=== PATIENT | female | born 1960 ===

== ENCOUNTER 2018-06-16 08:41 | Observation (INO) | payer OTHER, SELFPAY ==
[2018-06-16 09:18] LABS: BASO # 0.1 K/uL (0.0-0.2); EOS # 0.2 K/uL (0.0-0.7); EOS % 2.3 % (0.0-4.0); HEMOGLOBIN 14.1 g/dL (11.0-16.0); LYMPH # 2.3 K/uL (1.0-4.3); LYMPH % 22.2 % (20.0-40.0); MEAN CELL VOLUME 83.1 fL (81.0-99.0); MEAN CORPUSCULAR HEMOGLOBIN 27.8 pg (27.0-31.0); MEAN CORPUSCULAR HGB CONC 33.5 g/dL (33.0-37.0); MEAN PLATELET VOLUME 8.4 fL (7.2-11.7); MONO # 0.6 K/uL (0.0-0.8); MONO % 5.8 % (0.0-10.0); NEUT % 68.7 % (50.0-75.0); RBC 5.07 Mil/uL (3.80-5.20); RED CELL DISTRIBUTION WIDTH 12.8 % (11.5-14.5); WHITE BLOOD COUNT 10.2 K/uL (4.8-10.8)
[2018-06-16 09:34] LABS: ALB/GLOB RATIO 1.3 (1.0-2.1); ALBUMIN 4.4 g/dL (3.5-5.0); ALT/SGPT 26 U/L (9-52); AST/SGOT 24 U/L (14-36); BLOOD UREA NITROGEN 15 mg/dL (7-17); CALCIUM 9.7 mg/dl (8.6-10.4); GFR AFRICAN-AMERICAN > 60; GFR NON-AFRICAN AMERICAN > 60
[2018-06-16 09:44] LABS: B-TYPE NATRIURETIC PEPTIDE 63.1 pg/mL (0-900)
[2018-06-16] MEDS ORDERED: Aspirin 325 mg EC Tablets PO STA (10:16)
--- NOTE | 2018-06-16 10:17 | C.PDOC ---
History Of Present Illness 58 y/o female presents to the ER complaining of midsternal chest pain radiating to the left arm for the past 2 weeks. Patient states that she has associated SOB. Patient is also complaining of general fatigue. Denies having fever, chills , and other complaints. Time Seen by Provider: 06/16/18 09:00 Chief Complaint (Nursing): Chest Pain History Per: Patient History/Exam Limitations: no limitations Onset/Duration Of Symptoms: Days Current Symptoms Are (Timing): Still Present Severity: Moderate Past Medical History Reviewed: Historical Data, Nursing Documentation, Vital Signs Vital Signs: Last Vital Signs Temp 98.8 F 06/16/18 08:47 Pulse 75 06/16/18 08:47 Resp 18 06/16/18 08:47 BP 112/74 06/16/18 08:47 Pulse Ox 96 06/16/18 10:40 - Medical History PMH: Anxiety, Gastritis, HTN, Hypercholesterolemia Denies: Chronic Kidney Disease Surgical History: Cholecystectomy, Endoscopy - [facility] Procedures COLONOSCOPY (04/04/15) ESOPHAGOGASTRODUODENOSCOPY [EGD] W/CLOSED BIOPSY (04/04/15) Family History: States: No Known Family Hx - Social History Hx Alcohol Use: No Hx Substance Use: No - Immunization History Hx Tetanus Toxoid Vaccination: No Hx Influenza Vaccination: No Hx Pneumococcal Vaccination: No Review Of Systems Except As Marked, All Systems Reviewed And Found Negative. Constitutional: Positive for: Other (fatigue). Negative for: Fever, Chills Cardiovascular: Positive for: Chest Pain Respiratory: Positive for: Shortness of Breath. Negative for: Cough Physical Exam - Physical Exam Appears: Non-toxic, No Acute Distress Skin: Normal Color, Warm, Dry Head: Atraumatic, Normacephalic Eye(s): bilateral: Normal Inspection Nose: Normal Oral Mucosa: Moist Throat: Normal, No Erythema, No Exudate Neck: Supple Chest: Symmetrical Cardiovascular: Rhythm Regular Respiratory: Normal Breath Sounds, No Rales, No Rhonchi, No Wheezing Gastrointestinal/Abdominal: Normal Exam, Soft, No Tenderness, No Guarding, No Rebound Neurological/Psych: Oriented x3, Normal Speech ED Course And Treatment - Laboratory Results Result Diagrams: 06/16/18 09:12 06/16/18 09:12 ECG: Interpreted By Me, Viewed By Me ECG Rhythm: Sinus Rhythm Interpretation Of ECG: NSR with normal intervals, normal axises, and no ST/ T wave abnormalities Rate From EC O2 Sat by Pulse Oximetry: 96 (RA) Pulse Ox Interpretation: Normal Medical Decision Making Medical Decision Making: Assessment: Chest Pain Plan: --Labs --CXR --ECG --Aspirin PO Disposition Discussed With DrMichelle: Kareen Young Counseled Patient/Family Regarding: Studies Performed, Diagnosis - Disposition Disposition: HOSPITALIZED Disposition Time: 10:17 Condition: FAIR - Clinical Impression Clinical Impression: Chest pain - Scribe Statement The provider has reviewed the documentation as recorded by the Willieibe Elvie Palencia Provider Attestation: All medical record entries made by the Scribe were at my direction and personally dictated by me. I have reviewed the chart and agree that the record accurately reflects my personal performance of the history, physical exam, medical decision making, and the department course for this patient. I have also personally directed, reviewed, and agree with the discharge instructions and disposition.
--- NOTE | 2018-06-16 11:48 | CP.PCM.HP ---
History of Present Illness - History of Present Illness History of Present Illness: PGY-1 Gisela Love D.O. Medicine H&P for Dr. Gill's service: Chrissy Pineda is a 58 yo female with a history of HTN, HLD, and anxiety/depression who presents to the ED with chest pain x 2 weeks. She is also complaining of fatigue and generalized weakness to the point where she feels like she cannot walk. 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 Specifically, she describes b/l leg weakness and heaviness. She notes the chest pain is constant. It is midsternal and epigastric. The epigastric pain is reproducible with palpation. At present, she denies radiation, but ED reports indicate she previously reported radiation to L arm. She denies dysphagia or heartburn (but she is only home meds for GERD/hx of gastritis). She is intermittently tearful throughout the exam stating that she is depressed because she cannot work and worried that something is wrong with her legs. She denies fevers and chills. She denies SOB or cough. She denies SELF. She denies abdominal pain/N/V/C/D. Meds: Norvasc 5 mg PO daily Lovastatin 40 mg PO daily Metoprolol succinate 50 mg PO daily Losartan-HCTZ 12.5 mg PO daily Pepcid 20 mg PO daily Ranitidine 150 mg PO daily Restoril 30 mg PO QHS All: NKA PMH: HTN HLD Anxiety Depression PSH: Cholecystectomy x2 FH: none SH: Homemaker Lives with 2 children Denies alcohol, tobacco, illicit drugs PMD: Sherif Cardio: Jose R Present on Admission - Present on Admission Any Indicators Present on Admission: No History of DVT/PE: No History of Uncontrolled Diabetes: No Urinary Catheter: No Decubitus Ulcer Present: No History Surgical Site Infection Following: None Review of Systems - Constitutional Constitutional: Fatigue, Weakness. absent: Anorexia, Chills, Fever, Headache - EENT Eyes: absent: Blurred Vision, Change in Vision Ears: absent: Tinnitus, Abnormal Hearing, Dizziness Nose/Mouth/Throat: absent: Nasal Congestion, Dry Mouth, Dysphagia - Cardiovascular Cardiovascular: Chest Pain, Chest Pain at Rest, Chest Pain with Activity. absent: Edema, Lightheadedness, Palpitations, Rapid Heart Rate, Syncope - Respiratory Respiratory: absent: Cough, Dyspnea, Pain on Inspiration, Chest Congestion - Gastrointestinal Gastrointestinal: absent: Abdominal Pain, Change in Stool Character, Constipation, Diarrhea, Nausea, Vomiting - Genitourinary Genitourinary: absent: Difficulty Urinating, Dysuria, Hematuria, Urinary Incontinence, Urinary Frequency, Urinary Hesitance - Reproductive: Female Reproductive:Female: Post Menopausal - Menstruation Menstruation: Post Menopausal - Musculoskeletal Musculoskeletal: Muscle Weakness (b/l LEs). absent: Limited Range of Motion, Numbness, Tingling - Integumentary Integumentary: absent: Lesions, Pruritus, Rash - Neurological Neurological: Weakness (b/l LEs, generalized). absent: Confusion, Numbness, Frequent Falls, Headaches - Psychiatric Psychiatric: Anxiety, Depression - Endocrine Endocrine: Fatigue. absent: Change in Body Appearance, Excessive Sweating, Polydipsia, Polyuria - Hematologic/Lymphatic Hematologic: absent: Easy Bleeding, Easy Bruising, Lymphadenopathy Past Patient History - Past Medical History & Family History Past Medical History?: Yes Past Family History: Reviewed and not pertinent - Past Social History Smoking Status: Never Smoked Chewing Tobacco Use: No Cigar Use: No Alcohol: None Drugs: Denies Home Situation {Lives}: With Family () Domestic Violence: Negative - CARDIAC Hx Hypercholesterolemia: Yes Hx Hypertension: Yes - PULMONARY Hx Respiratory Disorders: No - NEUROLOGICAL Hx Neurological Disorder: No - HEENT Hx HEENT Problems: No - RENAL Hx Chronic Kidney Disease: No - ENDOCRINE/METABOLIC Hx Endocrine Disorders: No - HEMATOLOGICAL/ONCOLOGICAL Hx Blood Disorders: No - INTEGUMENTARY Hx Dermatological Problems: No - MUSCULOSKELETAL/RHEUMATOLOGICAL Hx Musculoskeletal Disorders: No - GASTROINTESTINAL Hx Gastritis: Yes - GENITOURINARY/GYNECOLOGICAL Hx Genitourinary Disorders: No - PSYCHIATRIC Hx Anxiety: Yes Hx Depression: Yes Hx Substance Use: No - SURGICAL HISTORY Hx Surgeries: Yes Hx Section: Yes (x2) Hx Cholecystectomy: Yes - ANESTHESIA Hx Anesthesia: Yes Hx Anesthesia Reactions: No Hx Malignant Hyperthermia: No Meds Allergies/Adverse Reactions: Allergies Allergy/AdvReac Type Severity Reaction Status Date / Time No Known Allergies Allergy Verified 06/16/18 08:51 Physical Exam - Constitutional Appears: Well, No Acute Distress Additional comments: anxious, tearful - Head Exam Head Exam: ATRAUMATIC, NORMAL INSPECTION, NORMOCEPHALIC - Eye Exam Eye Exam: EOMI, Normal appearance, PERRL - ENT Exam ENT Exam: Mucous Membranes Moist, Normal Exam - Neck Exam Neck exam: Positive for: Normal Inspection - Respiratory Exam Respiratory Exam: Clear to Auscultation Bilateral, NORMAL BREATHING PATTERN. absent: Rhonchi, Wheezes - Cardiovascular Exam Cardiovascular Exam: REGULAR RHYTHM, +S1, +S2. absent: Diastolic murmur, Systolic Murmur - GI/Abdominal Exam GI & Abdominal Exam: Normal Bowel Sounds, Soft. absent: Tenderness - Rectal Exam Rectal Exam: Deferred - Extremities Exam Extremities exam: Positive for: normal inspection, pedal pulses present. Negative for: calf tenderness, pedal edema, tenderness - Back Exam Back exam: NORMAL INSPECTION. absent: tenderness - Neurological Exam Neurological exam: Alert, CN II-XII Intact, Oriented x3 - Psychiatric Exam Psychiatric exam: Anxious, Depressed Additional comments: tearful - Skin Skin Exam: Dry, Intact, Normal Color, Warm Results - Vital Signs Recent Vital Signs: Last Vital Signs Temp 98.8 F 06/16/18 08:47 Pulse 75 06/16/18 08:47 Resp 18 06/16/18 08:47 BP 112/74 06/16/18 08:47 Pulse Ox 96 06/16/18 10:40 - Labs Result Diagrams: 06/16/18 09:12 06/16/18 09:12 Labs: Laboratory Results - last 24 hr 06/16/18 06/16/18 09:12 09:12 WBC 10.2 RBC 5.07 Hgb 14.1 Hct 42.2 MCV 83.1 MCH 27.8 MCHC 33.5 RDW 12.8 Plt Count 231 MPV 8.4 Neut % (Auto) 68.7 Lymph % (Auto) 22.2 Coffee % (Auto) 5.8 Eos % (Auto) 2.3 Baso % (Auto) 1.0 Neut # (Auto) 7.0 Lymph # (Auto) 2.3 Coffee # (Auto) 0.6 Eos # (Auto) 0.2 Baso # (Auto) 0.1 Sodium 142 Potassium 3.8 Chloride 104 Carbon Dioxide 28 Anion Gap 14 BUN 15 Creatinine 0.9 Est GFR ( Amer) > 60 Est GFR (Non-Af Amer) > 60 Random Glucose 126 H Calcium 9.7 Total Bilirubin 0.5 AST 24 ALT 26 Alkaline Phosphatase 90 Troponin I < 0.0120 NT-Pro-B Natriuret Pep 63.1 Total Protein 7.9 Albumin 4.4 Globulin 3.4 Albumin/Globulin Ratio 1.3 - EKG Data EKG Interpreted by: ER Physician EKG shows normal: Sinus rhythm Rate: Normal Assessment & Plan - Assessment and Plan (Free Text) Assessment: Patient is a 58 yo female who presented with chest pain and generalized weakness. Work-up for cardio etiology has thus far been negative. Plan: Generalized weakness, acute- pt complains primarily of b/l LE weakness - B/l venous Dopplers pending Atypical chest pain, acute - Monitor on telemetry - EKG 06/16: NSR (HR 74) - Troponin negative x1- continue to trend - ASA 325 mg x1 in ED - Echo pending - Consider stress test - Cardiology consult (Dr. Pérez) HTN, chronic, stable - Vitals q4hrs - Continue home Norvasc 5 mg PO daily - Continue home Metoprolol succinate 50 mg PO daily - Continue home Losartan/HCTZ 12.5 mg PO daily HLD, chronic - Continue home lovastatin 40 mg PO daily Anxiety and Depression - PDQ-9 Insomnia - Hold Restoril 30 mg PO QHS IVF: not indicated Diet: heart healthy GI ppx: Protonix 20 mg PO daily (home med) VTE ppx: SCDs b/l, ambulatory Code status: full code
--- NOTE | 2018-06-16 13:00 | RAD ---
Date of service: 06/16/2018 PROCEDURE: CHEST RADIOGRAPH, 1 VIEW HISTORY: SOB COMPARISON: 03/03/2013 FINDINGS: LUNGS: Clear. PLEURA: No pneumothorax or pleural fluid seen. CARDIOVASCULAR: No radiographic findings to suggest acute or significant cardiovascular disease. OSSEOUS STRUCTURES: No significant abnormalities. VISUALIZED UPPER ABDOMEN: Normal. OTHER FINDINGS: None. IMPRESSION: No active disease. No acute/significant interval changes.
[2018-06-16 16:34] VITALS: RESP 20
--- NOTE | 2018-06-16 16:57 | CP.PCM.CON ---
History of Present Illness - History of Present Illness History of Present Illness: Hussein Ferrell, PGY1 Cardiology Consult Note for Dr. Pérez Patient is a 58 y/o female with PMHx of HTN, HLD, gastritis, and anxiety/depression who presented to the ED with chest pain x2 weeks. Patient describes pain as constant midsternal and epigastric. In the ED, patient endorsed radiation of pain to the L-arm. Associated symptoms include fatigue, bilateral lower extremity weakness and heaviness. In the ED, troponins negative x 2. EKG was NSR with no ST or T wave changes. Prior hospital admission was for cholecystectomy (2014). Cardiology was consulted for evaluation of chest pain. Patient is Portuguese speaking; language interpretation was conducted by nurse at bedside. Patient denied recent surgeries. Current vital signs stable. Patient denies shortness of breath, abdominal pain, nausea, vomiting, diarrhea, headache , dizziness, and pain in the upper extremities. Patient says that she gets chest pain upon exertion. As per patient, exercise tolerance is poor. She gets chest pain within walking a few feet. Patient is also extremely anxious and depressed. She is supporting her mother [place] (diagnosed with Alzheimers) and has been dealing with more stress recently. Patient is concerned that due to her lower extremity weakness, she will no longer be able to work and support her family. Patient was tearful during interview. A full 12 point ROS was conducted and unremarkable except as stated above. From prior charting: PMH: HTN, HLD, anxiety, depression, gastritis PSH: Cholecystectomy (2014), x2 FH: significant cardiovascular history in maternal side of the family Meds: Norvasc 5 mg PO daily, Lovastatin 40 mg PO daily, Metoprolol succinate 50 mg PO daily, Losartan-HCTz 12.5 mg PO daily, Pepcid 20 mg daily, Ranitidine 150 mg PO daily, Restoril 30 mg PO QHS Allergies: NKA Social: Homemaker, lives with , 2 children. Denies alcohol, tobacco, illicit drugs. Code: Full code Review of Systems - Review of Systems All systems: reviewed and no additional remarkable complaints except (as per HPI.) Past Patient History - Past Medical History & Family History Past Medical History?: Yes - Past Social History Smoking Status: Never Smoked Chewing Tobacco Use: No Cigar Use: No Alcohol: None Drugs: Denies Home Situation {Lives}: With Family () Domestic Violence: Negative - CARDIAC Hx Hypercholesterolemia: Yes Hx Hypertension: Yes - PULMONARY Hx Respiratory Disorders: No - NEUROLOGICAL Hx Neurological Disorder: No - HEENT Hx HEENT Problems: No - RENAL Hx Chronic Kidney Disease: No - ENDOCRINE/METABOLIC Hx Endocrine Disorders: No - HEMATOLOGICAL/ONCOLOGICAL Hx Blood Disorders: No - INTEGUMENTARY Hx Dermatological Problems: No - MUSCULOSKELETAL/RHEUMATOLOGICAL Hx Musculoskeletal Disorders: No - GASTROINTESTINAL Hx Gastritis: Yes - GENITOURINARY/GYNECOLOGICAL Hx Genitourinary Disorders: No - PSYCHIATRIC Hx Anxiety: Yes Hx Depression: Yes Hx Substance Use: No - SURGICAL HISTORY Hx Surgeries: Yes Hx Section: Yes (x2) Hx Cholecystectomy: Yes - ANESTHESIA Hx Anesthesia: Yes Hx Anesthesia Reactions: No Hx Malignant Hyperthermia: No Meds Home Medications: Home Medication List Medication Instructions Recorded Confirmed Type Escitalopram [Lexapro] 5 mg PO DAILY #30 tab 06/17/18 Rx Famotidine [Pepcid] 20 mg PO DAILY tab 06/17/18 Rx Losartan [Cozaar] 50 mg PO DAILY tab 06/17/18 Rx Metoprolol Succinate XL [Toprol XL] 50 mg PO DAILY tab 06/17/18 Rx Rosuvastatin Calcium [Crestor] 5 mg PO HS tab 06/17/18 Rx amLODIPine [Norvasc] 5 mg PO DAILY tab 06/17/18 Rx Allergies/Adverse Reactions: Allergies Allergy/AdvReac Type Severity Reaction Status Date / Time No Known Allergies Allergy Verified 06/16/18 08:51 - Medications Medications: Current Medications Acetaminophen (Tylenol 325mg Tab) 650 mg PO Q6 PRN PRN Reason: Pain, Mild (1-3) Amlodipine Besylate (Norvasc) 5 mg PO DAILY ANIVAL Famotidine (Pepcid) 20 mg PO DAILY ANIVAL Famotidine (Pepcid) 20 mg PO DAILY ANIVAL Hydrochlorothiazide (Microzide) 12.5 mg PO DAILY ANIVAL Losartan Potassium (Cozaar) 50 mg PO DAILY ANIVAL Metoprolol Succinate (Toprol Xl) 50 mg PO DAILY ANIVAL Rosuvastatin Calcium (Crestor) 5 mg PO DAILY ANIVAL Physical Exam - Constitutional Additional comments: Anxious and tearful. - Head Exam Head Exam: ATRAUMATIC, NORMAL INSPECTION, NORMOCEPHALIC - Eye Exam Eye Exam: EOMI, Normal appearance, PERRL Pupil Exam: NORMAL ACCOMODATION, PERRL - ENT Exam ENT Exam: Mucous Membranes Moist, Normal Exam - Neck Exam Neck exam: Positive for: Normal Inspection - Respiratory Exam Respiratory Exam: Clear to Auscultation Bilateral, NORMAL BREATHING PATTERN. absent: Accessory Muscle Use, Chest Wall Tenderness, Rales, Rhonchi, Wheezes, Respiratory Distress, Stridor - Cardiovascular Exam Cardiovascular Exam: RRR, +S1, +S2. absent: Systolic Murmur - GI/Abdominal Exam GI & Abdominal Exam: Normal Bowel Sounds, Soft. absent: Guarding, Organomegaly , Rebound, Tenderness - Extremities Exam Extremities exam: Positive for: full ROM, normal capillary refill, normal inspection, pedal pulses present. Negative for: calf tenderness, joint swelling , pedal edema, tenderness Additional comments: Lower extremity 5/5 motor strength bilaterally. Negative Laureen's sign. - Back Exam Back exam: NORMAL INSPECTION. absent: paraspinal tenderness, tenderness Additional comments: Kyphosis. - Neurological Exam Neurological exam: Alert, Oriented x3 - Psychiatric Exam Psychiatric exam: Anxious, Depressed - Skin Skin Exam: Dry, Intact, Normal Color, Warm Results - Vital Signs Recent Vital Signs: Last Vital Signs Temp 98 F 06/16/18 16:00 Pulse 60 06/16/18 16:18 Resp 20 06/16/18 16:00 BP 143/80 06/16/18 16:00 Pulse Ox 98 06/16/18 16:00 - Labs Result Diagrams: 06/17/18 07:13 06/17/18 07:13 Labs: Laboratory Results - last 24 hr 06/16/18 06/16/18 06/16/18 09:12 09:12 15:10 WBC 10.2 RBC 5.07 Hgb 14.1 Hct 42.2 MCV 83.1 MCH 27.8 MCHC 33.5 RDW 12.8 Plt Count 231 MPV 8.4 Neut % (Auto) 68.7 Lymph % (Auto) 22.2 Anson % (Auto) 5.8 Eos % (Auto) 2.3 Baso % (Auto) 1.0 Neut # (Auto) 7.0 Lymph # (Auto) 2.3 Anson # (Auto) 0.6 Eos # (Auto) 0.2 Baso # (Auto) 0.1 Sodium 142 Potassium 3.8 Chloride 104 Carbon Dioxide 28 Anion Gap 14 BUN 15 Creatinine 0.9 Est GFR ( Amer) > 60 Est GFR (Non-Af Amer) > 60 Random Glucose 126 H Calcium 9.7 Total Bilirubin 0.5 AST 24 ALT 26 Alkaline Phosphatase 90 Troponin I < 0.0120 < 0.0120 NT-Pro-B Natriuret Pep 63.1 Total Protein 7.9 Albumin 4.4 Globulin 3.4 Albumin/Globulin Ratio 1.3 Assessment & Plan - Assessment and Plan (Free Text) Assessment: Patient is a 58 y/o female with PMHx of HTN, HLD, gastritis, and anxiety/depression who presented to the ED with mid-sternal chest pain x2 weeks that worsens with exertion. Patient also has bilateral lower extremity weakness and heaviness. Patient is depressed and anxious. In ED, troponins negative x2, CXR unremarkable, EKG NSR with no ST changes or T wave inversions. Cardiology consulted for evaluation of chest pain. Plan: Atypical Chest Pain possibly 2/2 psychosocial stressors; cannot r/o cardiac etiology - Non-acute onset; chest pain of 2 weeks duration - Atypical in nature; however, patient has risk factors such as advanced age, contributory family history, HTN and HLD. - Troponins negative x2 - BNP negative - c/w ASA - Consider exercise stress test; if unable to tolerate, consider pharmacological stress test - EKG (06/16): NSR. Normal axis deviation. No ST elevations, depressions or T wave inversions. - ECHO (06/16): pre-carreno report, EF 70%; f/u official read - f/u venous doppler LE to r/o DVT HTN - c/w home medications; norvasc, metoprolol, Losartan-HCTZ - Currently normotensive - Maintain MAP > 65 HLD - c/w Rosuvastatin Depression/Anxiety - recommend psych evaluation Gastritis - GI ppx: Pepcid Case was reviewed and discussed with Creche Attendant Dr. Pérez.
--- NOTE | 2018-06-16 22:54 | CARD ---
APPROVED REPORT Date of service: 06/16/2018 EXAM: Two-dimensional and M-mode echocardiogram with Doppler and color Doppler. INDICATION Chest Pain RISK FACTORS Hypertension 2D DIMENSIONS IVSd0.9 (0.7-1.1cm)Aortic Root (2D)2.8 (2.0-3.7cm) LVDd3.8 (3.9-5.9cm)PWd1.1 (0.7-1.1cm) LVDs2.0 (2.5-4.0cm)FS (%) 48.8 % LVEF (%)80.8 (>50%) M-Mode DIMENSIONS RVDd1.40 (2.1-3.2cm)Left Atrium (MM)5.01 (2.5-4.0cm) IVSd0.85 (0.7-1.1cm)Aortic Root2.54 (2.2-3.7cm) LVDd5.21 (4.0-5.6cm)Aortic Cusp Exc.1.82 (1.5-2.0cm) PWd0.94 (0.7-1.1cm)FS (%) 34 % LVDs3.42 (2.0-3.8cm)LVEF (%)70 (>50%) Mitral Valve MV E Uqkpqzzf97.4cm/sMV A Ydinfkwl96.5cm/sE/A ratio0.8 TDI E/Lateral E'0.0E/Medial E'0.0 Tricuspid Valve TR Peak [id number]/sTR Peak Gr.[id number] LEFT VENTRICLE The left ventricle is normal size. There is normal left ventricular wall thickness. Left ventricle systolic function is normal. The Ejection Fraction is 60-65%. There is normal LV segmental wall motion. The left ventricular diastolic function is normal. There is no ventricular septal defect visualized. RIGHT VENTRICLE The right ventricle is normal size. The right ventricular systolic function is normal. ATRIA The left atrium size is normal. The right atrium size is normal. AORTIC VALVE The aortic valve is tri-cuspid. The aortic valve is normal in structure. No aortic regurgitation is present. There is no aortic valvular stenosis. MITRAL VALVE The mitral valve is normal in structure. There is no evidence of mitral valve prolapse. There is no mitral valve regurgitation noted. TRICUSPID VALVE The tricuspid valve is normal in structure. There is trace tricuspid regurgitation. Right ventricular systolic pressure is estimated at less than 30 mmHg. There is no pulmonary hypertension. PULMONIC VALVE The pulmonic valve is not well visualized. There is trace pulmonic valvular regurgitation. GREAT VESSELS The aortic root is normal in size. The ascending aorta is normal in size. The IVC is normal in size and collapses >50% with inspiration. PERICARDIAL EFFUSION There is no pericardial effusion. <Conclusion> Grossly normal study.
[2018-06-17 07:32] LABS: BASO # 0.1 K/uL (0.0-0.2); BASO % 0.6 % (0.0-2.0); EOS # 0.2 K/uL (0.0-0.7); EOS % 2.8 % (0.0-4.0); HEMOGLOBIN 13.9 g/dL (11.0-16.0); LYMPH # 2.5 K/uL (1.0-4.3); LYMPH % 29.2 % (20.0-40.0); MEAN CELL VOLUME 83.2 fL (81.0-99.0); MEAN CORPUSCULAR HEMOGLOBIN 27.7 pg (27.0-31.0); MEAN CORPUSCULAR HGB CONC 33.3 g/dL (33.0-37.0); MEAN PLATELET VOLUME 8.3 fL (7.2-11.7); MONO # 0.5 K/uL (0.0-0.8); MONO % 5.6 % (0.0-10.0); NEUT # 5.4 K/uL (1.8-7.0); NEUT % 61.8 % (50.0-75.0); NRBC % 0.1 % (0.0-2.0); RBC 5.01 Mil/uL (3.80-5.20); WHITE BLOOD COUNT 8.7 K/uL (4.8-10.8)
[2018-06-17 07:40] LABS: ALB/GLOB RATIO 1.3 (1.0-2.1); ALBUMIN 4.1 g/dL (3.5-5.0); ALT/SGPT 27 U/L (9-52); AST/SGOT 23 U/L (14-36); BLOOD UREA NITROGEN 16 mg/dL (7-17); CALCIUM 9.5 mg/dl (8.6-10.4); GFR AFRICAN-AMERICAN > 60; GFR NON-AFRICAN AMERICAN > 60
[2018-06-17 08:07] VITALS: TEMP 97.7
[2018-06-17] MEDS ORDERED: Metoprolol Succinate 50 mg XL Tab PO SCH (10:00)
[2018-06-17] MEDS ORDERED: Enoxaparin 40 mg Syringe SC SCH (10:00)
--- NOTE | 2018-06-17 10:13 | CP.PCM.PN ---
Subjective - Date & Time of Evaluation Date of Evaluation: 06/17/18 Time of Evaluation: 08:00 - Subjective Subjective: Hussein Ferrell, PGY1 Cardiology Progress Note for Dr. Pérez Patient was seen and examined at bedside this morning. Vital signs stable. Language interpretation was done by off-security site supervisor. Patient is complaining of mild headache, pressure in her chest upon ambulation as well as palpitations overnight. Patient also describes fatigue after brushing her teeth. Patient denies shortness of breath, abdominal pain, lightheadedness, n/v/ d. Patient was explained results of echocardiogram on 06/16, which was grossly normal. Patient was emotional and tearful during interview. Also discussed with patient's daughter over the phone, who confirmed that the patient has been dealing with more stress lately. It was also confirmed that the patient does not see a site reliability engineer, however, she occasionally follows up with her PMD. A full 12 point ROS was conducted and unremarkable except as stated above. Objective - Vital Signs/Intake and Output Vital Signs (last 24 hours): Temp Pulse Resp BP Pulse Ox 97.7 F 85 20 140/80 97 06/17/18 08:05 06/17/18 08:05 06/17/18 08:05 06/17/18 08:05 06/17/18 08:05 - Medications Medications: Current Medications Acetaminophen (Tylenol 325mg Tab) 650 mg PO Q6 PRN PRN Reason: Pain, Mild (1-3) Amlodipine Besylate (Norvasc) 5 mg PO DAILY [facility] Enoxaparin Sodium (Lovenox) 40 mg SC DAILY [facility] Famotidine (Pepcid) 20 mg PO DAILY [facility] Hydrochlorothiazide (Microzide) 12.5 mg PO DAILY [facility] Losartan Potassium (Cozaar) 50 mg PO DAILY [facility] Metoprolol Succinate (Toprol Xl) 50 mg PO DAILY [facility] Rosuvastatin Calcium (Crestor) 5 mg PO HS [facility] Last Admin: 06/16/18 21:12 Dose: 5 mg - Labs Labs: 06/17/18 07:13 06/17/18 07:13 - Constitutional Appears: Well - Head Exam Head Exam: ATRAUMATIC, NORMAL INSPECTION, NORMOCEPHALIC - Eye Exam Eye Exam: EOMI, Normal appearance, PERRL Pupil Exam: NORMAL ACCOMODATION, PERRL - ENT Exam ENT Exam: Mucous Membranes Moist, Normal Exam - Neck Exam Neck Exam: Full ROM, Normal Inspection. absent: Lymphadenopathy - Respiratory Exam Respiratory Exam: Clear to Ausculation Bilateral, NORMAL BREATHING PATTERN. absent: Chest Wall Tenderness, Rales, Rhonchi, Wheezes, Respiratory Distress, Stridor - Cardiovascular Exam Cardiovascular Exam: REGULAR RHYTHM, +S1, +S2. absent: Murmur - GI/Abdominal Exam GI & Abdominal Exam: Soft, Normal Bowel Sounds. absent: Tenderness - Extremities Exam Extremities Exam: Full ROM, Normal Capillary Refill, Normal Inspection. absent : Joint Swelling, Pedal Edema - Back Exam Back Exam: NORMAL INSPECTION - Neurological Exam Neurological Exam: Alert, Awake, Oriented x3 Neuro motor strength exam: Left Upper Extremity: 5, Right Upper Extremity: 5, Left Lower Extremity: 5, Right Lower Extremity: 5 - Skin Skin Exam: Dry, Intact, Normal Color, Warm Assessment and Plan - Assessment and Plan (Free Text) Assessment: Patient is a 58 y/o female with PMHx of HTN, HLD, gastritis, and anxiety/depression who presented to the ED with mid-sternal chest pain x2 weeks that worsens with exertion. Patient also complains of bilateral lower extremity weakness and heaviness. Patient is depressed and anxious. In ED, troponins negative x3, CXR unremarkable, EKG NSR with no ST changes or T wave inversion. Cardiology was consulted for chest pain. ECHO (06/16) shows LVEF 70% and grossly normal study. Plan: Atypical chest pain 2/2 psychosocial stressors; cannot r/o cardiac etiology - Non-acute onset; chest pain x2 weeks duration; dealing with more stress recently - Atypical in nature however patient has risk factors such as advanced age, contributory family hx, HTN, and HLD. - Consider exercise stress test as outpatient follow up - Troponins negative x3. - BNP negative - c/w ASA - ECHO (06/16): LVEF 70%, grossly normal study. - EKG (06/16): NSR. Normal axis deviation. No ST elevations, depressions or T wave inversions. HTN - c/w home medications; norvasc, metoprolol, Losartan-HCTZ - currently normotensive - Maintain MAP >65 HLD - c/w Rosuvastatin Depression/Anxiety - f/u psych recs - GI ppx: Pepcid - DVT ppx: Lovenox Dispo: No acute cardiac issues at this time. Patient may follow up with site reliability engineer for stress test as outpatient. Case was discussed and reviewed with [employer] Value Added Assessor Dr. Pérez.
[2018-06-17 10:38] VITALS: O2SAT 98
--- NOTE | 2018-06-17 11:47 | PCM.PSYCH ---
Initial Psychiatric Evaluation - Initial Psychiatric Evaluation Type of Admission: Voluntary Legal Status: Capacity History of Present Illness and Precipitating Events: Pt is seen, chart reviewed, case discussed with staff. Pt is a 58 y/o , Frisian-speaking female who lives with her and son in [place]; pt has 2 children, 1 son and 1 daughter; pt works as a homemaker. Pt was brought into the hospital for chest pain and knee weakness and psychiatry was consulted for depression; pt was diagnosed with depression for a couple of years and was on medications that worked but is no longer taking them ; hospitalization exacerbated depressed mood. Pt confirms S/I but has no plan. Pt confirms occasional panic attacks where she feels anxious and as if her heart is beating fast. Pt has no past psychiatric hx, denies alcohol, tobacco, or drug use, denies A/H or V/H, and denies paranoia. Past medical hx includes anxiety, gastritis, HTN, hypercholesterolemia. Past surgical hx includes cholecystectomy, endoscopy. Family medical hx denied. Current Medications: Active Medications Generic Name Dose Route Start Last Admin Trade Name Freq PRN Reason Stop Dose Admin Acetaminophen 650 mg 06/16/18 11:48 06/17/18 10:07 Tylenol 325mg Tab PO 650 mg Q6 PRN Administration Pain, Mild (1-3) Amlodipine Besylate 5 mg 06/17/18 10:00 06/17/18 10:07 Norvasc PO 5 mg DAILY [facility] Administration Clonazepam 0.5 mg 06/18/18 10:00 Klonopin PO DAILY [facility] Enoxaparin Sodium 40 mg 06/17/18 10:00 06/17/18 10:08 Lovenox SC 40 mg DAILY [facility] Administration Escitalopram Oxalate 5 mg 06/18/18 10:00 Lexapro PO DAILY [facility] Famotidine 20 mg 06/17/18 10:00 06/17/18 10:07 Pepcid PO 20 mg DAILY [facility] Administration Hydrochlorothiazide 12.5 mg 06/17/18 10:00 06/17/18 10:07 Microzide PO 12.5 mg DAILY [facility] Administration Losartan Potassium 50 mg 06/17/18 10:00 06/17/18 10:07 Cozaar PO 50 mg DAILY [facility] Administration Metoprolol Succinate 50 mg 06/17/18 10:00 06/17/18 10:07 Toprol Xl PO 50 mg DAILY [facility] Administration Rosuvastatin Calcium 5 mg 06/16/18 22:00 06/16/18 21:12 Crestor PO 5 mg HS ANIVAL Administration Past Psychiatric History - Past Psychiatric History Pertinent Medical Hx (Current Medical&Sleep Prob, Allergies): Allergies Allergy/AdvReac Type Severity Reaction Status Date / Time No Known Allergies Allergy Verified 06/16/18 08:51 Losartan/Hydrochlorothiazide [Losartan Potassium-Hydrochlorothiazide 12.5 M] 1 tab PO DAILY 04/04/15 Lovastatin [Mevacor] 40 mg PO DAILY 04/04/15 Metoprolol Succinate XL [Toprol XL] 50 mg PO DAILY 04/04/15 Ranitidine HCl [Ranitidine 150] 150 mg PO DAILY 04/04/15 Temazepam 30 mg PO DAILY 04/04/15 Famotidine [Pepcid] 20 mg PO DAILY 06/16/18 amLODIPine [Norvasc] 5 mg PO DAILY 06/16/18 DSM 5 DX - DSM 5 DSM 5 Diagnosis: Major Depressive Disorder, severe, recurrent, w/o psychosis SUSANNA - Recommended/Plan of Treatment Treatment Recommendations and Plan of Treatment: Start Lexapro 5 mg daily and Klonopin 0.5 mg as needed Pt cleared for discharge
--- NOTE | 2018-06-17 12:09 | CARD ---
APPROVED REPORT Date of service: 06/16/2018 EKG Measurement Heart [id number] <Conclusion> Normal sinus rhythm Normal ECG
--- NOTE | 2018-06-17 13:17 | VASCLAB ---
Date of service: 06/17/2018 PROCEDURE: Lower Extremity Venous Duplex Exam. HISTORY: Shortness of breath, Chest pain, Leg weakness. PRIORS: None. TECHNIQUE: Bilateral common femoral, femoral, popliteal and posterior tibial, peroneal and great saphenous veins were evaluated. Flow was assessed with color Doppler, compressibility, assessment of phasic flow and augmentation response. Report prepared by SARA Murry FINDINGS: RIGHT: 1. Common Femoral Vein: 1.1. Compressibility - Fully compressible: Thrombus - None : Flow - Phasic: Augmentation -Normal: Reflux - None. 2. Femoral Vein: 2.1. Compressibility - Fully compressible: Thrombus - None : Flow - Phasic: Augmentation -Normal: Reflux - None. 3. Popliteal Vein: 3.1. Compressibility - Fully compressible: Thrombus - None : Flow - Phasic: Augmentation -Normal: Reflux - None. 4. Posterior Tibial Vein: 4.1. Compressibility - Fully compressible: Thrombus - None: Flow - Phasic: Augmentation -Normal: Reflux - None. 5. Peroneal Vein: 5.1. Compressibility - Fully compressible: Thrombus - None: Flow - Phasic: Augmentation -Normal: Reflux - None. 6. Great Saphenous Vein: 6.1. Compressibility - Fully compressible: Thrombus - None: Flow - Phasic: Augmentation - Normal: Reflux - None. LEFT: 1. Common Femoral Vein: 1.1. Compressibility - Fully compressible: Thrombus - None: Flow - Phasic: Augmentation -Normal: Reflux - None. 2. Femoral Vein: 2.1. Compressibility - Fully compressible: Thrombus - None: Flow - Phasic: Augmentation -Normal: Reflux - None. 3. Popliteal Vein: 3.1. Compressibility - Fully compressible: Thrombus - None : Flow - Phasic: Augmentation -Normal: Reflux - None. 4. Posterior Tibial Vein: 4.1. Compressibility - Fully compressible: Thrombus - None: Flow - Phasic: Augmentation -Normal: Reflux - None. 5. Peroneal Vein: 5.1. Compressibility - Fully compressible: Thrombus - None: Flow - Phasic: Augmentation -Normal: Reflux - None. 6. Great Saphenous Vein: 6.1. Compressibility - Fully compressible: Thrombus - None: Flow - Phasic: Augmentation - Normal: Reflux - None. OTHER FINDINGS: Right: None significant. Left: None significant. IMPRESSION: Right: No evidence of deep or superficial vein thrombosis of the right lower extremity. Normal valve function noted of the right side. Left: No evidence of deep or superficial vein thrombosis of the left lower extremity. Normal valve function noted of the left side.
--- NOTE | 2018-06-17 14:21 | CP.PCM.DIS ---
Provider - Provider Date of Admission: 06/16/18 10:18 Attending physician: Arcadio Gill MD Time Spent in preparation of Discharge (in minutes): 45 Diagnosis - Discharge Diagnosis (1) Anxiety Status: Chronic (2) Depression Status: Chronic (3) Chest pain Status: Resolved Hospital Course - Lab Results Lab Results: Most Recent Lab Values WBC 8.7 K/uL (4.8-10.8) 06/17/18 07:13 RBC 5.01 Mil/uL (3.80-5.20) 06/17/18 07:13 Hgb 13.9 g/dL (11.0-16.0) 06/17/18 07:13 Hct 41.7 % (34.0-47.0) 06/17/18 07:13 MCV 83.2 fL (81.0-99.0) 06/17/18 07:13 MCH 27.7 pg (27.0-31.0) 06/17/18 07:13 MCHC 33.3 g/dL (33.0-37.0) 06/17/18 07:13 RDW 13.0 % (11.5-14.5) 06/17/18 07:13 Plt Count 210 K/uL (130-400) 06/17/18 07:13 MPV 8.3 fL (7.2-11.7) 06/17/18 07:13 Neut % (Auto) 61.8 % (50.0-75.0) 06/17/18 07:13 Lymph % (Auto) 29.2 % (20.0-40.0) 06/17/18 07:13 Swift % (Auto) 5.6 % (0.0-10.0) 06/17/18 07:13 Eos % (Auto) 2.8 % (0.0-4.0) 06/17/18 07:13 Baso % (Auto) 0.6 % (0.0-2.0) 06/17/18 07:13 Neut # (Auto) 5.4 K/uL (1.8-7.0) 06/17/18 07:13 Lymph # (Auto) 2.5 K/uL (1.0-4.3) 06/17/18 07:13 Swift # (Auto) 0.5 K/uL (0.0-0.8) 06/17/18 07:13 Eos # (Auto) 0.2 K/uL (0.0-0.7) 06/17/18 07:13 Baso # (Auto) 0.1 K/uL (0.0-0.2) 06/17/18 07:13 Sodium 141 mmol/L (132-148) 06/17/18 07:13 Potassium 3.8 mmol/L (3.6-5.2) 06/17/18 07:13 Chloride 103 mmol/L (98-107) 06/17/18 07:13 Carbon Dioxide 29 mmol/L (22-30) 06/17/18 07:13 Anion Gap 13 (10-20) 06/17/18 07:13 BUN 16 mg/dL (7-17) 06/17/18 07:13 Creatinine 0.9 mg/dL (0.7-1.2) 06/17/18 07:13 Est GFR ( Amer) > 60 06/17/18 07:13 Est GFR (Non-Af Amer) > 60 06/17/18 07:13 Random Glucose 133 mg/dL (65-105) H 06/17/18 07:13 Calcium 9.5 mg/dl (8.6-10.4) 06/17/18 07:13 Phosphorus 3.5 mg/dL (2.5-4.5) 06/17/18 07:13 Magnesium 1.9 mg/dL (1.6-2.3) 06/17/18 07:13 Total Bilirubin 0.5 mg/dL (0.2-1.3) 06/17/18 07:13 AST 23 U/L (14-36) 06/17/18 07:13 ALT 27 U/L (9-52) 06/17/18 07:13 Alkaline Phosphatase 96 U/L (38-126) 06/17/18 07:13 Troponin I < 0.0120 ng/mL (0.00-0.120) 06/16/18 20:34 NT-Pro-B Natriuret Pep 63.1 pg/mL (0-900) 06/16/18 09:12 Total Protein 7.4 g/dL (6.3-8.3) 06/17/18 07:13 Albumin 4.1 g/dL (3.5-5.0) 06/17/18 07:13 Globulin 3.3 gm/dL (2.2-3.9) 06/17/18 07:13 Albumin/Globulin Ratio 1.3 (1.0-2.1) 06/17/18 07:13 - Hospital Course Hospital Course: PGY-1 Gisela Love D.O. Medicine H&P for Dr. Gill's service: Chrissy Pineda is a 58 yo female with a history of HTN, HLD, and anxiety/depression who presents to the ED with chest pain x 2 weeks. She is also complaining of fatigue and generalized weakness to the point where she feels like she cannot walk. 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 Specifically, she describes b/l leg weakness and heaviness. She notes the chest pain is constant. It is midsternal and epigastric. The epigastric pain is reproducible with palpation. At present, she denies radiation, but ED reports indicate she previously reported radiation to L arm. She denies dysphagia or heartburn (but she is only home meds for GERD/hx of gastritis). She is intermittently tearful throughout the exam stating that she is depressed because she cannot work and worried that something is wrong with her legs. She denies fevers and chills. She denies SOB or cough. She denies SELF. She denies abdominal pain/N/V/C/D. Meds: Norvasc 5 mg PO daily Lovastatin 40 mg PO daily Metoprolol succinate 50 mg PO daily Losartan-HCTZ 12.5 mg PO daily Pepcid 20 mg PO daily Ranitidine 150 mg PO daily Restoril 30 mg PO QHS All: NKA PMH: HTN HLD Anxiety Depression PSH: Cholecystectomy x2 FH: none SH: Homemaker Lives with 2 children Denies alcohol, tobacco, illicit drugs PMD: Sherif Cardio: Jose R Hopital course: Pt admitted for chest pain EKGs 3x neg Trops neg x3 BNP 63 Venous Doppler : NEG Please refer to [place] records for full reports Psych consulted: recommend Lexapro 5mg and klonipin 0.5mg and outpt follow up Instructions: Follow up with Dr Odell out patient cardiology within one week for stress test Follow up with Dr Gorman PMD for one week Establish care with psychiatry for medication refill Discharge Exam - Head Exam Head Exam: ATRAUMATIC, NORMAL INSPECTION, NORMOCEPHALIC Discharge Plan - Discharge Medications Prescriptions: Escitalopram [Lexapro] 5 mg PO DAILY #30 tab - Follow Up Plan Condition: FAIR Disposition: HOME/ ROUTINE Instructions: Depression, Chest Pain, Anxiety, Adult (DC) Referrals: Mesfin Odell MD [Medical Doctor] - Loraine Gorman MD [IM] -
[2018-06-17 15:17] VITALS: BP 108/71; PULSE 73
== END 2018-06-17 16:40 | disposition home or self-care (01) ==
LOC: C.ER 08:41 → C.9E 10:18 → C.6T 13:09
PROVIDERS: ADMIT Internal Medicine; ATTEND Internal Medicine
DX: R07.89 Other chest pain (principal); E78.00 Pure hypercholesterolemia, unspecified; F33.2 Major depressive disorder, recurrent severe without psychotic features; F41.1 Generalized anxiety disorder; I10 Essential (primary) hypertension; K21.9 Gastro-esophageal reflux disease without esophagitis; F43.9 Reaction to severe stress, unspecified
CPT/HCPCS: 36415; 71045; 80053; 83735; 83880; 84100; 84484; 85025; 93005; 93306; 93970; 99284; G0378; J1650